=== PATIENT | female | born 1995 | race Caucasian/White ===

== ENCOUNTER 2023-08-29 12:50 | Emergency (ER) | payer OTHER | END 2023-08-29 14:30 | disposition home or self-care (01) | LOC: KA.ED 12:50 | DX: H43.393 Other vitreous opacities, bilateral (principal); Z79.899 Other long term (current) drug therapy | CPT/HCPCS: 99283 ==

== ENCOUNTER 2023-11-05 01:06 | Emergency (ER) | payer OTHER | END 2023-11-05 02:59 | disposition home or self-care (01) | LOC: KA.ED 01:06 | DX: R07.89 Other chest pain (principal); F41.9 Anxiety disorder, unspecified; Z79.82 Long term (current) use of aspirin; Z79.899 Other long term (current) drug therapy | CPT/HCPCS: 36415; 84484; 85379; 99285 ==